=== PATIENT | female | born 1945 | race Caucasian/White ===

== ENCOUNTER → 2016-11-22 | Outpatient (CLI) | payer MEDICARE, BC ==
[~2016-11-22] MED LIST: ASPI-110 PO; HYOS0.128 PO; OMEG1CAP53 PO; OXYC-360 PO; REST0.05 EACH EYE; SIMV20TA OR; TAB-TAB PO; WELC625T2 PO
--- NOTE | 2016-11-23 08:43 | RSPPFT ---
DATE OF PROCEDURE: 11/22/16 COMMENTS: VOLUMES DYNAMIC: FVC and FEV1 super normal. STATIC: FRC, RV and TLC super normal. FLOWS: FEV1% and FEF 25-75 normal. DIFFUSION: Normal. FLOW VOLUME LOOP: Normal configuration. IMPRESSION: Very normal pulmonary volumes and flows with no obstruction or restriction. Normal diffusion and no improvement post-bronchodilator.
== END ==
LOC: PHRSP 10:20
PROVIDERS: ATTEND Internal Medicine
DX: J44.9 Chronic obstructive pulmonary disease, unspecified (principal)
CPT/HCPCS: 94060; 94620; 94726; 94729

== ENCOUNTER → 2016-11-26 | Outpatient (CLI) | payer MEDICARE, BC ==
[2016-11-26 10:45] LABS: MEAN CELL VOLUME 89.6 FL (80.0-100.0); MEAN CORPUSCULAR HEMOGLOBIN 31.2 PG (27.0-34.0); MEAN CORPUSCULAR HGB CONC 34.8 % (32.0-36.0); PLATELET COUNT 241 TH/MM3 (150-450); RED CELL DISTRIBUTION WIDTH 13.3 % (11.6-17.2); REVIEW FLAG FINAL
[2016-11-26 10:51] LABS: PROTHROMBIN TIME - PATIENT 10.7 SEC (9.8-11.6)
[2016-11-26 11:10] LABS: BICARBONATE 31.7 MEQ/L (21.0-32.0); POTASSIUM 4.3 MEQ/L (3.5-5.1)
--- NOTE | 2016-11-26 22:19 | EKG ---
Date Performed: 11/26/2016 Time Performed: 10:49:01 PTAGE: 71 years EKG: Sinus rhythm BORDERLINE LEFT AXIS DEVIATION BORDERLINE ECG PREVIOUS TRACING : 05/03/2011 10.35 DOCTOR: Rosa Freeman Interpretating Date/Time 11/26/2016 22:18:05
== END ==
LOC: CPRE 10:04
PROVIDERS: ATTEND Internal Medicine
DX: Z01.812 Encounter for preprocedural laboratory examination (principal); Z01.810 Encounter for preprocedural cardiovascular examination; R59.0 Localized enlarged lymph nodes; R91.8 Other nonspecific abnormal finding of lung field; R94.31 Abnormal electrocardiogram [ECG] [EKG]
CPT/HCPCS: 36415; 80048; 85027; 85610; 85730; 93005

== ENCOUNTER 2016-11-30 11:19 | Day surgery (SDC) | payer MEDICARE, BC ==
[~2016-11-30] VITALS: Ht 170.2 cm; Wt 61.4 kg
[~2016-11-30 11:19] MED LIST changes: +LACTATED RINGER'S 1000 ML INJ 1,000 ML IV ONE; +ONDANSETRON HCL 4 MG/2 ML VIAL IV PUSH ONE; +PHENYLEPH/NS 1000 MCG/10 ML SYR IV ONE; +PROPOFOL 200 MG/20 ML AMP IV ONE
[2016-11-30 11:35] VITALS: BP 147/78; PULSE 87; RESP 20; TEMP 97.9; O2SAT 93
[2016-11-30] MEDS ORDERED: RESP: ALBUTEROL CONC 2.5 MG/0.5 ML NEB ONE (11:44)
[2016-11-30] MEDS ORDERED: RESP: LIDOCAINE HCL 4% PF 5 ML NEB ONE (11:44)
[2016-11-30] MEDS ORDERED: RESP: LIDOCAINE HCL 4% PF 5 ML NEB NEB ONE (12:00)
[2016-11-30] MEDS ORDERED: SODIUM CHLOR 0.9% 1000 ML IV SCH (12:00)
[2016-11-30] MEDS ORDERED: RESP: ALBUTEROL CONC 2.5 MG/0.5 ML NEB INH ONE (12:00)
--- NOTE | 2016-11-30 14:23 | RADRPT ---
EXAM DATE/TIME: 11/30/2016 13:03 [facility] COMPARISON: No previous studies available for comparison. INDICATIONS : left lung mass RADIATION DOSE: 9.10 CTDIvol (mGy) MEDICAL HISTORY : unobtainable SURGICAL HISTORY : unobtainable ENCOUNTER: Initial ACUITY: 1 day PAIN SCALE: 0/10 LOCATION: chest TECHNIQUE: Volumetric scanning of the chest was performed using inspiration and expiration protocols. The study is performed using fiduciary markers for virtual bronchoscopy. Using automated exposure control and adjustment of the mA and/or kV according to patient size, radiation dose was kept as low as reasonabl y achievable to obtain optimal diagnostic quality images. FINDINGS: LUNGS: There is a 3.0 x 2.2 cm mass in the lingula adjacent to the major fissure. No other nodules or masses . Minimal bibasilar scarring. PLEURAE: There is no pleural thickening or pleural effusion. MEDIASTINUM: The heart and great vessels demonstrate no acute abnormality. There is no mediastinal or hilar lymph adenopathy. AXILLAE: Within normal limits. No lymphadenopathy. MUSCULOSKELETAL: Within normal limits for patient age. MISCELLANEOUS: The visualized upper abdominal organs demonstrate no acute abnormality. CONCLUSION: 1. Lingular mass as described above. 2. No enlarged mediastinal or hilar adenopathy. Chaka Sanford MD on November 30, 2016 at 14:18 Board Certified Radiologist. This report was verified electronically.
[2016-11-30] MEDS ORDERED: EPINEPHrine HCL (1:1000) 1 MG/ML VIAL OTHER ONE (16:06)
[2016-11-30] MEDS ORDERED: RESP: ALBUTEROL 2.5 MG/3 ML NEB (PRN) NEB (16:30)
[2016-11-30] MEDS ORDERED: MORPHINE SULFATE 4 MG/ML INJ ONE (16:40)
[2016-11-30] MEDS ORDERED: *RESP: ALBUTEROL 2.5 MG/3 ML NEB (PRN) PERIprocedural Use ONLY NEB ONE (16:54)
--- NOTE | 2016-11-30 17:01 | RADRPT ---
EXAM DATE/TIME: 11/30/2016 16:21 [facility] COMPARISON: CT THORAX W/O CONTRAST INSP/EXPIR, NAVIGATION, November 30, 2016, 13:03. INDICATIONS : Left lung biopsy. MEDICAL HISTORY : None. SURGICAL HISTORY : None. ENCOUNTER: Initial ACUITY: 1 day PAIN SCORE: 0/10 LOCATION: Bilateral chest FINDINGS: The exam demonstrates a focal masslike area of consolidation in the left midlung field. No pneumothor ax is seen. The right lung is clear. The heart is normal in size. CONCLUSION: 1. No pneumothorax identified. 2. 3 cm mass in the left lung. Ryder Miller MD on November 30, 2016 at 16:58 Board Certified Radiologist. This report was verified electronically.
[2016-11-30 17:35] VITALS: BP 104/80; PULSE 20; RESP 18; TEMP 98.5; O2SAT 90
[2016-11-30] MEDS ORDERED: DO NOT ADM ANY ANTICOAGULANT DRUGS PRN (17:45)
[2016-11-30] MEDS ORDERED: methylPREDNISolone SOD SUCC 125 MG/2 ML VIAL ONE (17:50)
[2016-11-30] MEDS ORDERED: methylPREDNISolone SOD SUCC 40 MG/1 ML VIAL IV PUSH ONE (18:00)
[2016-11-30 18:05] VITALS: BP 108/54; PULSE 92; RESP 16; O2SAT 95
[2016-11-30 18:35] VITALS: BP 119/67; PULSE 86; RESP 16; O2SAT 93
--- NOTE | 2016-12-01 11:28 | MR ---
cc: Yonny LOUISELinn MIGUEL A DATE: 11/30/2016 PROCEDURE Bronchoscopy. INDICATION Left hilar mass. DETAILS OF PROCEDURE After informed consent was obtained the patient underwent diagnostic bronchoscopy with general anesthesia. The patient was a difficult intubation. Anesthesia used several modalities and in the and we were able to pass the bronchoscope past the endotracheal tube over the bronchoscope for a successful intubation. I did speak to her after the procedure and explained to him that should be part of her medical record just for future reference for elective procedures. Once the patient was intubated we proceeded with a diagnostic bronchoscopy. Initial examination of the trachea, right main stem bronchus, right upper lobe, middle lobe and lower lobe orifices was entirely unremarkable. Examination of the left main stem bronchus, left upper lobe, lingula and lower lobe orifices on initial inspection was normal. Based on CT findings the lesion was felt to be in the inferior segment of the left lingula and upon careful re-inspection there was some irregularity on one of the sub-segments in the inferior lingular segment with irregular mucosa and some narrowing of the airway. After this initial inspection endobronchial ultrasound was performed to see if we could identify any abnormal lymph nodes. CT scanning did not identify any lymph nodes over 1 cm. Initial examination of the subcarinal area on the right did not reveal any significant adenopathy. Examination of the right paratracheal area again revealed no significant lymph node enlargement. Examination of the left paratracheal region also revealed no significant adenopathy. Examination of the subcarinal area on the left from the left side did reveal some adenopathy and a transbronchial needle aspiration was performed and submitted for cytology. Inspection of the 10L station also identified about a 1 cm nodule which was biopsied and specimen submitted for cytology. After completion of the ultrasound portion of the procedure we re-scoped her with the fiberoptic bronchoscope and we were able to identify the lesion in the inferior segment of the lingula with navigational technology. Once the lesion was identified the area was washed, brushed, a needle aspirate was obtained and three transbronchial biopsies were obtained as well. We also confirmed the presence of the lesion with the radial EBUS device. There was minimal bleeding after biopsies. She tolerated the procedure well otherwise and is being transferred to [facility] in stable condition. Multiple specimens were submitted for cytology and pathology and a washing was also submitted for culture. Chest x-ray is pending at this time. RMD KIRBY Sandoval/RALEIGH /5:00 PM /11:22 AM
--- NOTE | 2016-12-02 10:18 | MB ---
cc: DR. CASSIDY CORDON R. STEVEN M.D. DATE OF CONSULTATION 11/17/2016 HISTORY OF THE PRESENT ILLNESS Ms. Toribio is a 71-year-old white female who has recently had an examination as just part of a routine followup and congestion was noted in the left lung. She was a former smoker of up to 2-3 packs per day for about 25 years although she quit smoking about 30 years ago. The doctor obtained a chest x-ray which was abnormal and a CT scan which reveals a left infrahilar and lingular mass with no effusion and no obvious pathological adenopathy. She is referred for further evaluation. The patient is entirely asymptomatic. No chest pain. No shortness of breath. No cough or congestion. Currently no secondhand smoke exposure. She did have one previous malignancy, a cervical cancer treated by brachytherapy and chemotherapy in 2004 and has had no recurrence to date. She underwent a cardiovascular evaluation last year for easy fatigue that was by Dr. MAGALLANES and that was apparently normal. She did not require a catheterization. She is on no cardiovascular drugs. She has had a good appetite but lost about 15 pounds within the last 9 months. PAST MEDICAL HISTORY 1. The cancer noted of the cervix. 2. She had pneumonia in 1993 or 1994 and then again in about 2013, neither time hospitalized. 3. No formal diagnosis of COPD or emphysema, although her CT scan does indicate changes consistent with that. 4. She has had a right shoulder injury and surgery. No diabetes. No prior history of stroke. No history of ischemic heart disease. ALLERGIES FENTANYL WHICH SHE RECEIVED DURING HER CERVICAL CANCER TREATMENT THAT CAUSED NAUSEA AND VOMITING. MEDICATIONS 1. Restasis eye drops. 2. Welchol. 3. Hyoscyamine as needed for diarrhea. 4. Baby aspirin three times a week. FAMILY HISTORY Father of complications of heart disease in his 70s. Mother of liver disease at 68. Foster brother to COPD and she has no children. SOCIAL HISTORY She is a retired health care workers compensation administrator. She is , living with her since 1995. She drinks about 2 ounces of alcohol a day or a glass of wine. No animal exposures. Smoking noted. REVIEW OF SYSTEMS Weight dropped as noted. Good appetite. No abdominal complaints. No hoarseness. No visual complaints. No anginal chest pain or chronic edema. No chest symptoms. No musculoskeletal complaints. PHYSICAL EXAMINATION 108/72, pulse 88, temperature is 98. Respiratory rate 18. Saturation 95% on room air. HEENT: Sclerae anicteric. Pharynx is clear. NECK: The neck veins are flat. LYMPHATICS: No adenopathy in the neck, supraclavicular region. CHEST: Fairly clear. She does have some fine rales in the left mid to lower chest posterolaterally. No wheezing. HEART: Regular rhythm. No harsh murmur. No audible S3. Neck veins are flat. EXTREMITIES: No edema, cyanosis or clubbing. Ms. Toribio presents with an abnormal CT scan, a left infrahilar mass, very suspicious for malignancy. Also has a longstanding prior smoking history with some changes consistent with emphysema. I have scheduled her for pulmonary functions and we are going to schedule her for a bronchoscopy as well. I have reviewed the options including needle aspiration, biopsy or bronchoscopy and she is agreeable to proceed with bronchoscopy. We discussed the procedure in simple terms so that she understands what it involves and we have also reviewed potential complications including although not limited to anesthetic complication, pneumothorax or hemorrhage. We have also discussed the possibility that either of these procedures may not be definitive and we would have to move onto additional diagnostic studies to establish a diagnosis. After thoroughly reviewing this she is agreeable to proceed. Further diagnostic and/or therapeutic intervention will depend on results of these initial diagnostic studies. R. MD KIRBY Simeon/GIGI /3:40 PM /10:18 AM
== END 2016-11-30 18:45 | disposition home or self-care (01) ==
LOC: HROP 11:19 → HRIP 11:23 → HROP 18:45
PROVIDERS: ATTEND Internal Medicine
DX: C34.12 Malignant neoplasm of upper lobe, left bronchus or lung (principal); Z85.41 Personal history of malignant neoplasm of cervix uteri; Z87.01 Personal history of pneumonia (recurrent); Z88.8 Allergy status to other drugs, medicaments and biological substances; Z87.891 Personal history of nicotine dependence; Z92.21 Personal history of antineoplastic chemotherapy
CPT/HCPCS: 31629; 31654; 71010; 71250; 87015; 87070; 87102; 87116; 87205; 87206; 88112; 88305; 94640; 94664; J0171; J2270; J2370; J2405; J2930; J7030; J7120; J7611; J7613; 88307